=== PATIENT | female | born 1985 | race Caucasian/White ===

== ENCOUNTER → 2020-04-09 | Outpatient (CLI) | payer OTHER ==
[~2020-04-09] MED LIST: CHANTIX1 MG PO; COLACE 100MG C100 MG PO; ESTRACE 1 MG TAB1 MG PO; FLEXERIL 10 MG10 MG PO; IBUPROFEN600 MG PO; IRON325 M1 PO; NABUMETONE500 MG PO; NEURONTIN400 MG PO; NORCO 10-325 T1 EACH PO; OXYCODON-ACETA1 EAC1 PO; PERCOCET 10-321 EACH PO; PRAMET FA TAB1 EA PO; TOPAMAX25 MG PO
[2020-04-09 11:30] LABS: HEMOGLOBIN 16.1 gm/dl (12.3-15.3); RED BLOOD COUNT 5.06 M/UL (4.00-5.10); WHITE BLOOD COUNT 9.4 K/UL (4.5-11.0)
[2020-04-09 12:09] LABS: BUN/CREATININE RATIO 13 (0-10)
== END ==
LOC: OPSV2 10:00
PROVIDERS: Obstetrics & Gynecology
DX: Z01.818 Encounter for other preprocedural examination (principal); N83.201 Unspecified ovarian cyst, right side; N83.202 Unspecified ovarian cyst, left side; R00.1 Bradycardia, unspecified
CPT/HCPCS: 36415; 80048; 81001; 85025; 93005

== ENCOUNTER → 2020-05-24 | Day surgery (SDC) | payer OTHER | END | disposition home or self-care (01) | LOC: OR 08:00 | DX: Z53.9 Procedure and treatment not carried out, unspecified reason (principal) ==

== ENCOUNTER → 2020-06-05 | Outpatient (CLI) | payer OTHER ==
[2020-06-05 09:43] LABS: HEMOGLOBIN 14.6 gm/dl (12.3-15.3); RED BLOOD COUNT 4.51 M/UL (4.00-5.10); WHITE BLOOD COUNT 9.4 K/UL (4.5-11.0)
== END ==
LOC: OPSV2 08:00
PROVIDERS: Obstetrics & Gynecology
DX: Z01.812 Encounter for preprocedural laboratory examination (principal); N83.209 Unspecified ovarian cyst, unspecified side
CPT/HCPCS: 36415; 81001; 85025

== ENCOUNTER → 2020-06-05 | Outpatient (CLI) | payer OTHER | LOC: KOH-I 05-08 09:45 → US 10:00 | DX: R74.8 Abnormal levels of other serum enzymes (principal) | CPT/HCPCS: 76705 ==

== ENCOUNTER → 2020-06-07 | Day surgery (SDC) | payer OTHER | END | disposition home or self-care (01) | LOC: OR 06:29 | PROVIDERS: Obstetrics & Gynecology | PROC: 0UT24ZZ Resection of Bilateral Ovaries, Percutaneous Endoscopic Approach (ICD-10-PCS; principal; 2020-06-07 07:30) | DX: N83.02 Follicular cyst of left ovary (principal); N83.01 Follicular cyst of right ovary; N73.6 Female pelvic peritoneal adhesions (postinfective); K66.8 Other specified disorders of peritoneum; N83.209 Unspecified ovarian cyst, unspecified side; I10 Essential (primary) hypertension; I49.9 Cardiac arrhythmia, unspecified; G47.30 Sleep apnea, unspecified; F17.210 Nicotine dependence, cigarettes, uncomplicated; K21.9 Gastro-esophageal reflux disease without esophagitis; M19.09 Primary osteoarthritis, other specified site; Z90.710 Acquired absence of both cervix and uterus; Z79.899 Other long term (current) drug therapy; Z88.5 Allergy status to narcotic agent; Z20.822 Contact with and (suspected) exposure to COVID-19 | CPT/HCPCS: J1100; J1885; J2001; J2250; J2405; J2704; J2710; J2795; J3010; J7120 ==

== ENCOUNTER 2020-06-11 14:27 | Observation (INO) | payer OTHER ==
[~2020-06-11] VITALS: Ht 154.9 cm; Wt 80.3 kg
[~2020-06-11 14:27] MED LIST changes: -PERCOCET 10-321 EACH PO
[2020-06-11 16:30] LABS: HEMOGLOBIN 14.5 gm/dl (12.3-15.3); RED BLOOD COUNT 4.51 M/UL (4.00-5.10)
[2020-06-11 17:02] LABS: BUN/CREATININE RATIO 11 (0-10)
[2020-06-12] MEDS ORDERED: PERCOCET 10-321 EACH PO (07:55)
--- NOTE | 2020-06-12 11:02 | NUR ---
INSTRUCTED ON IMPORTANCE OF EATING WITH PERCOCET E-SCRIPTED TO JERO Rojas FOLLOW UP WITH MD SCHEDULED. JUDY LUO R.N.
== END 2020-06-12 11:19 | disposition home or self-care (01) ==
LOC: MED SURG 4 14:27
PROVIDERS: ADMIT Obstetrics & Gynecology
DX: G89.18 Other acute postprocedural pain (principal); R10.30 Lower abdominal pain, unspecified; Z90.722 Acquired absence of ovaries, bilateral; Z90.710 Acquired absence of both cervix and uterus; Z79.899 Other long term (current) drug therapy; Z20.822 Contact with and (suspected) exposure to COVID-19
CPT/HCPCS: 36415; 80053; 85027; 96374; 96376; G0378; G0379; J2270; J7120; Q9967; U0002

== ENCOUNTER → 2020-12-01 | Outpatient (CLI) | payer OTHER ==
[~2020-12-01] MED LIST changes: +PERCOCET 10-321 EACH PO
== END ==
LOC: RAD 10:46
DX: M79.642 Pain in left hand (principal)
CPT/HCPCS: 73130

== ENCOUNTER 2021-01-30 09:47 | Emergency (ER) | payer OTHER ==
[2021-01-30] MEDS ORDERED: NAPROSYN500 MG PO (11:51)
== END 2021-01-30 11:54 | disposition home or self-care (01) ==
LOC: ER1 09:47
DX: M79.672 Pain in left foot (principal); M79.671 Pain in right foot; F17.210 Nicotine dependence, cigarettes, uncomplicated; W19.XXXA Unspecified fall, initial encounter
CPT/HCPCS: 96372; 99283; J1885

== ENCOUNTER → 2021-01-31 | Outpatient (CLI) | payer OTHER ==
[~2021-01-31] MED LIST changes: +NAPROSYN500 MG PO
== END ==
LOC: KOH-I 11:47
DX: M79.673 Pain in unspecified foot (principal)
CPT/HCPCS: 73610; 73630

== ENCOUNTER 2021-08-14 20:27 | Emergency (ER) | payer OTHER | END 2021-08-14 21:27 | disposition home or self-care (01) | LOC: ER1 20:27 | DX: S93.492A Sprain of other ligament of left ankle, initial encounter (principal); X50.9XXA Other and unspecified overexertion or strenuous movements or postures, initial encounter | CPT/HCPCS: 73610; 73630; 99283 ==

== ENCOUNTER → 2021-10-16 | Outpatient (CLI) | payer OTHER | LOC: KOH-I 14:18 | DX: M79.672 Pain in left foot (principal) | CPT/HCPCS: 73630 ==

== ENCOUNTER → 2021-10-28 | Outpatient (CLI) | payer OTHER | LOC: KOH-I 09:38 | DX: M25.472 Effusion, left ankle (principal); M25.572 Pain in left ankle and joints of left foot; G89.29 Other chronic pain | CPT/HCPCS: 73721 ==